=== PATIENT | male | born 1970 | race Caucasian/White ===

== ENCOUNTER 2020-02-21 23:26 | Inpatient (IN) ==
[2020-02-21 02:06] LABS: Basophils # 0.1 K/mcL (0.0-0.2); Basophils % 0.4 %; Eosinophils # 0.1 K/mcL (0.0-0.6); Eosinophils % 0.6 %; Hematocrit 43.7 % (37.5-50.1); Hemoglobin 14.2 g/dL (12.9-16.9); Immature Granulocytes % 0.3 % (0-4); Lymphocytes # 3.5 K/mcL (0.6-4.6); Lymphocytes % 24.3 %; Mean Corpuscular HGB Conc 32.5 g/dL (31.6-35.5); Mean Corpuscular Hemoglobin 30.7 pg (28.0-33.3); Mean Corpuscular Volume 94.6 fL (83.0-100.0); Mean Platelet Volume 10.6 fL (9.4-12.4); Monocytes # 0.9 K/mcL (0.0-1.3); Monocytes % 6.4 %; Neutrophils # 9.8 K/mcL (1.6-8.9); Platelet Count 227 K/mcL (140-400); Red Blood Count 4.62 M/mcL (4.19-5.50); Red Cell Distribution Width 14.7 % (11.5-14.5); White Blood Count 14.5 K/mcL (4.3-11.1)
[2020-02-21 02:10] LABS: Prothrombin Time 11.9 Seconds (9.4-12.1)
[2020-02-21 02:29] LABS: Chol/HDL Ratio 4.8 (0-4.9); Magnesium 1.9 mg/dL (1.6-2.6)
[2020-02-21 02:30] LABS: BUN/Creatinine Ratio 30 (6-26); Blood Urea Nitrogen 22 mg/dL (6-20); Calcium 8.7 mg/dL (8.6-10.3); Carbon Dioxide 25 mEq/L (23-29); Chloride 101 mEq/L (98-107); Glucose 115 mg/dL (70-105); Osmolality,Calculated 290 (280-300); Potassium 4.1 mEq/L (3.5-5.1); Sodium 138 mEq/L (136-145); eGFR For African Americans > 60 (> 60); eGFR For Non-African Americans > 60 (> 60)
[2020-02-21 02:39] LABS: Troponin I 0.07 ng/mL (< 0.04)
[2020-02-21 03:01] LABS: Hematocrit 43.3 % (37.5-50.1); Hemoglobin 13.7 g/dL (12.9-16.9); Mean Corpuscular HGB Conc 31.6 g/dL (31.6-35.5); Mean Corpuscular Hemoglobin 29.7 pg (28.0-33.3); Mean Corpuscular Volume 93.9 fL (83.0-100.0); Mean Platelet Volume 10.5 fL (9.4-12.4); Platelet Count 213 K/mcL (140-400); Red Blood Count 4.61 M/mcL (4.19-5.50); Red Cell Distribution Width 14.8 % (11.5-14.5); White Blood Count 12.6 K/mcL (4.3-11.1)
[2020-02-21 03:02] LABS: Heparin anti-factor XA UFH 0.04 IU/mL (0.30-0.70)
[2020-02-21 03:03] LABS: Prothrombin Time 11.4 Seconds (9.4-12.1)
[2020-02-21] MEDS: Azithromycin 500 MG in 0.9 % Sodium Chloride 250 ML IVPB SCH (03:10)
[2020-02-21] MEDS: Heparin 25,000 UNIT/250 ML D5W 25,000 UNIT/250 ML IV.SOLN IVC SCH ×2 (03:35→21:32)
[2020-02-21] MEDS: Ipratropium/Albuterol Neb 3 ML IH SCH ×6 (03:51→23:57)
[2020-02-21 03:55] LABS: Thyroid Stimulating Hormone 3.373 mcIU/mL (0.340-5.600)
[2020-02-21] MEDS: Aspirin 81 MG TAB.CHEW PO SCH (09:11)
[2020-02-21] MEDS: Acetaminophen 325 MG TABLET PO PRN (17:06)
[2020-02-21 18:05] LABS: VBG HCO3 30 mEq/L (21-27); VBG PCO2 47 mmHg (41-51); VBG PH 7.41 pH Units (7.32-7.42); VBG PO2 113 mmHg (25-50)
[2020-02-21] MEDS: *HR* Heparin 5,000 UNIT/ML VIAL IVP PRN (18:08)
[~2020-02-21 23:26] MED LIST: *HR* Heparin 5,000 UNIT/ML VIAL IVP ONE; *HR* Heparin 5,000 UNIT/ML VIAL IVP PRN; Furosemide 40 MG/4 ML VIAL IVP ONE; Ipratropium/Albuterol Neb 3 ML IH PRN; MethylPREDNISolone 40 MG/ML VIAL IVP SCH; Naloxone 0.4 MG/ML INJ IVP PRN; Ondansetron 4 MG/2 ML VIAL IVP PRN; Perflutren Lipid Microsphere 1.3 ML in 0.9 % Sodium Chloride 8.7 ML IVP ONE; cefTRIAXone 1,000 MG in Water for inj. (sterile) 10 ML IVP ONE; cefTRIAXone 1,000 MG in Water for inj. (sterile) 10 ML IVP SCH; cefTRIAXone 2,000 MG in Water for inj. (sterile) 20 ML IVP SCH; methylPREDNISolone 125 MG/2 ML VIAL IVP ONE
[2020-02-22] MEDS: *HR* Heparin 5,000 UNIT/ML VIAL IVP PRN ×2 (02:25→10:36)
[2020-02-22] MEDS: Ipratropium/Albuterol Neb 3 ML IH SCH ×5 (03:44→19:42)
[2020-02-22] MEDS: Azithromycin 500 MG in 0.9 % Sodium Chloride 250 ML IVPB SCH (04:12)
[2020-02-22 04:16] LABS: BUN/Creatinine Ratio 28 (6-26); Blood Urea Nitrogen 19 mg/dL (6-20); Calcium 8.9 mg/dL (8.6-10.3); Carbon Dioxide 28 mEq/L (23-29); Chloride 101 mEq/L (98-107); Glucose 95 mg/dL (70-105); Osmolality,Calculated 290 (280-300); Potassium 3.9 mEq/L (3.5-5.1); Sodium 139 mEq/L (136-145); eGFR For African Americans > 60 (> 60); eGFR For Non-African Americans > 60 (> 60)
[2020-02-22] MEDS: Acetaminophen 325 MG TABLET PO PRN (04:23)
[2020-02-22 05:38] LABS: Hematocrit 46.9 % (37.5-50.1); Hemoglobin 14.7 g/dL (12.9-16.9); Mean Corpuscular HGB Conc 31.3 g/dL (31.6-35.5); Mean Corpuscular Hemoglobin 30.2 pg (28.0-33.3); Mean Corpuscular Volume 96.5 fL (83.0-100.0); Mean Platelet Volume 11.5 fL (9.4-12.4); Platelet Count 187 K/mcL (140-400); Red Blood Count 4.86 M/mcL (4.19-5.50); Red Cell Distribution Width 14.8 % (11.5-14.5); White Blood Count 13.9 K/mcL (4.3-11.1)
[2020-02-22] MEDS ORDERED: Regadenoson 0.4 MG/5 ML SYRINGE IVP ONE (06:08)
[2020-02-22 06:43] LABS: Estimated Average Glucose 146 mg/dl
[2020-02-22] MEDS: predniSONE 20 MG TABLET PO SCH (10:36)
[2020-02-22] MEDS: Aspirin 81 MG TAB.CHEW PO SCH (10:36)
[2020-02-22] MEDS: Heparin 25,000 UNIT/250 ML D5W 25,000 UNIT/250 ML IV.SOLN IVC SCH ×2 (10:38→21:24)
[2020-02-22] MEDS: Furosemide 40 MG/4 ML VIAL IVP SCH ×2 (11:33→16:36)
[2020-02-22] MEDS ORDERED: cefTRIAXone 2,000 MG in Water for inj. (sterile) 20 ML IVP SCH (18:00)
[2020-02-23] MEDS: Ipratropium/Albuterol Neb 3 ML IH SCH ×7 (00:04→23:52)
[2020-02-23 02:32] LABS: Hemoglobin 14.8 g/dL (12.9-16.9); Mean Corpuscular HGB Conc 32.2 g/dL (31.6-35.5); Mean Corpuscular Volume 93.1 fL (83.0-100.0); Mean Platelet Volume 10.8 fL (9.4-12.4); Platelet Count 199 K/mcL (140-400); Red Blood Count 4.94 M/mcL (4.19-5.50); Red Cell Distribution Width 14.9 % (11.5-14.5); White Blood Count 12.7 K/mcL (4.3-11.1)
[2020-02-23 02:51] LABS: BUN/Creatinine Ratio 25 (6-26); Blood Urea Nitrogen 19 mg/dL (6-20); Calcium 9.1 mg/dL (8.6-10.3); Carbon Dioxide 28 mEq/L (23-29); Chloride 98 mEq/L (98-107); Glucose 95 mg/dL (70-105); Osmolality,Calculated 284 (280-300); Potassium 3.7 mEq/L (3.5-5.1); Sodium 136 mEq/L (136-145); eGFR For African Americans > 60 (> 60); eGFR For Non-African Americans > 60 (> 60)
[2020-02-23] MEDS: Azithromycin 500 MG in 0.9 % Sodium Chloride 250 ML IVPB SCH (03:22)
[2020-02-23] MEDS: Heparin 25,000 UNIT/250 ML D5W 25,000 UNIT/250 ML IV.SOLN IVC SCH (06:23)
[2020-02-23] MEDS: Furosemide 40 MG/4 ML VIAL IVP SCH (08:00)
[2020-02-23] MEDS: Aspirin 81 MG TAB.CHEW PO SCH (09:05)
[2020-02-23] MEDS: predniSONE 20 MG TABLET PO SCH (09:05)
[2020-02-24] MEDS: Ipratropium/Albuterol Neb 3 ML IH SCH ×5 (03:29→19:52)
[2020-02-24] MEDS: Aspirin 81 MG TAB.CHEW PO SCH (07:41)
[2020-02-24] MEDS: Azithromycin 250 MG TABLET PO SCH (07:41)
[2020-02-24] MEDS: predniSONE 20 MG TABLET PO SCH (07:41)
[2020-02-24 08:58] LABS: BUN/Creatinine Ratio 25 (6-26); Blood Urea Nitrogen 19 mg/dL (6-20); Calcium 8.9 mg/dL (8.6-10.3); Carbon Dioxide 27 mEq/L (23-29); Chloride 103 mEq/L (98-107); Glucose 106 mg/dL (70-105); Osmolality,Calculated 285 (280-300); Potassium 4.2 mEq/L (3.5-5.1); Sodium 136 mEq/L (136-145); eGFR For African Americans > 60 (> 60); eGFR For Non-African Americans > 60 (> 60)
[2020-02-24] MEDS ORDERED: ISOVUE-370 200 ML INFUS..BTL ONE (13:47)
[2020-02-24] MEDS ORDERED: 0.9 % Sodium Chloride 2,000 ML ONE (13:47)
[2020-02-24] MEDS ORDERED: Heparin 1,000 UNITS/500 mL 500 ML ONE (13:47)
[2020-02-24] MEDS ORDERED: *HR* Heparin 10,000 UNIT/10 ML VIAL ONE (13:47)
[2020-02-24] MEDS ORDERED: Nitroglycerin 1,000 MCG/10 ML VIAL IV ONE (13:47)
[2020-02-24] MEDS ORDERED: *HR* Midazolam HCl 2 MG/2 ML VIAL ONE (13:56)
[2020-02-24] MEDS ORDERED: Furosemide 40 MG/4 ML VIAL IVP ONE (14:43)
[2020-02-24] MEDS: lisinopriL 5 MG TABLET PO SCH (16:09)
[2020-02-24] MEDS: Metoprolol XL (24 HR) Succ 25 MG TAB.ER.24H PO SCH (16:09)
[2020-02-24] MEDS ORDERED: carvediloL 6.25 MG TABLET PO SCH (17:00)
[2020-02-24] MEDS: *HR* Heparin 5,000 UNIT/ML VIAL SQ SCH (22:13)
[2020-02-25] MEDS: Ipratropium/Albuterol Neb 3 ML IH SCH ×3 (00:05→07:29)
[2020-02-25 01:29] LABS: Hematocrit 47.2 % (37.5-50.1); Hemoglobin 14.8 g/dL (12.9-16.9); Mean Corpuscular HGB Conc 31.4 g/dL (31.6-35.5); Mean Corpuscular Hemoglobin 29.5 pg (28.0-33.3); Mean Corpuscular Volume 94.2 fL (83.0-100.0); Mean Platelet Volume 10.9 fL (9.4-12.4); Platelet Count 214 K/mcL (140-400); Red Blood Count 5.01 M/mcL (4.19-5.50); Red Cell Distribution Width 14.8 % (11.5-14.5); White Blood Count 12.5 K/mcL (4.3-11.1)
[2020-02-25 01:53] LABS: BUN/Creatinine Ratio 24 (6-26); Blood Urea Nitrogen 21 mg/dL (6-20); Calcium 8.9 mg/dL (8.6-10.3); Carbon Dioxide 27 mEq/L (23-29); Chloride 98 mEq/L (98-107); Glucose 161 mg/dL (70-105); Osmolality,Calculated 286 (280-300); Potassium 3.5 mEq/L (3.5-5.1); Sodium 135 mEq/L (136-145); eGFR For African Americans > 60 (> 60); eGFR For Non-African Americans > 60 (> 60)
[2020-02-25 06:24] VITALS: BP 107/67
[2020-02-25] MEDS: *HR* Heparin 5,000 UNIT/ML VIAL SQ SCH (08:23)
[2020-02-25] MEDS: Aspirin 81 MG TAB.CHEW PO SCH (08:54)
[2020-02-25] MEDS: predniSONE 20 MG TABLET PO SCH (08:54)
[2020-02-25] MEDS: Azithromycin 250 MG TABLET PO SCH (08:54)
[2020-02-25] MEDS: Metoprolol XL (24 HR) Succ 25 MG TAB.ER.24H PO SCH (08:54)
[2020-02-25] MEDS: lisinopriL 5 MG TABLET PO SCH (08:54)
[2020-02-25] MEDS ORDERED: Spironolactone 25 MG TABLET PO SCH (09:00)
[2020-02-25] MEDS ORDERED: Metoprolol XL (24 HR) Succ 25 MG TAB.ER.24H PO ONE (10:37)
[2020-02-26] MEDS ORDERED: Metoprolol XL (24 HR) Succ 50 MG TAB.ER.24H PO SCH (09:00)
== END 2020-02-25 11:19 | disposition home or self-care (01) | DRG 280 ==
LOC: 2ANU → SUATTDRO 02-22 22:29
PROVIDERS: ADMIT Internal Medicine; ATTEND Internal Medicine

== ENCOUNTER 2020-05-09 10:38 | Observation (INO) ==
[2020-05-09] MEDS ORDERED: Aspirin 81 MG TAB.CHEW PO ONE (10:42)
[2020-05-09] MEDS: Nitroglycerin 0.4 MG TAB.SUBL SL PRN ×3 (11:40→19:41)
[2020-05-09 12:19] LABS: Prothrombin Time 11.9 Seconds (9.4-12.1)
[2020-05-09 12:21] LABS: Activated Partial Thrombo Time 32.8 Seconds (26.0-36.0)
[2020-05-09 12:31] LABS: Basophils # 0.1 K/mcL (0.0-0.2); Basophils % 0.5 %; Eosinophils # 0.1 K/mcL (0.0-0.6); Eosinophils % 1.2 %; Hematocrit 44.4 % (37.5-50.1); Hemoglobin 14.6 g/dL (12.9-16.9); Immature Granulocytes % 0.4 % (0-4); Lymphocytes # 2.2 K/mcL (0.6-4.6); Lymphocytes % 20.5 %; Mean Corpuscular HGB Conc 32.9 g/dL (31.6-35.5); Mean Corpuscular Hemoglobin 31.2 pg (28.0-33.3); Mean Corpuscular Volume 94.9 fL (83.0-100.0); Mean Platelet Volume 10.9 fL (9.4-12.4); Monocytes # 0.7 K/mcL (0.0-1.3); Monocytes % 6.5 %; Neutrophils # 7.7 K/mcL (1.6-8.9); Platelet Count 202 K/mcL (140-400); Red Blood Count 4.68 M/mcL (4.19-5.50); Red Cell Distribution Width 14.2 % (11.5-14.5); Segmented Neutrophils % 70.9 %; White Blood Count 10.8 K/mcL (4.3-11.1)
[2020-05-09 12:34] LABS: Troponin I 0.23 ng/mL (< 0.04)
[2020-05-09 12:44] LABS: BUN/Creatinine Ratio 23 (6-26); Blood Urea Nitrogen 17 mg/dL (6-20); Carbon Dioxide 24 mEq/L (23-29); Chloride 101 mEq/L (98-107); Glucose 115 mg/dL (70-105); Osmolality,Calculated 282 (280-300); Potassium 4.5 mEq/L (3.5-5.1); Sodium 135 mEq/L (136-145); eGFR For African Americans > 60 (> 60); eGFR For Non-African Americans > 60 (> 60)
[2020-05-09] MEDS ORDERED: Naloxone 0.4 MG/ML INJ IVP PRN (13:19)
[2020-05-09] MEDS ORDERED: *HR* Heparin 5,000 UNIT/ML VIAL IVP ONE (13:22)
[2020-05-09] MEDS ORDERED: *HR* Heparin 5,000 UNIT/ML VIAL IVP PRN ×2 (13:22)
[2020-05-09] MEDS ORDERED: D5% in Water 1,000 ML IVC PRN (13:24)
[2020-05-09] MEDS ORDERED: Dextrose Gel 15 GM/37.5 ML TUBE PO PRN ×2 (13:24)
[2020-05-09] MEDS ORDERED: *HR* Dextrose 50 % in Water (Vial) 50 ML VIAL IVP PRN (13:24)
[2020-05-09] MEDS ORDERED: Heparin 25,000 UNIT/250 ML D5W 25,000 UNIT/250 ML IV.SOLN IVC SCH (13:30)
[2020-05-09] MEDS ORDERED: Ipratropium/Albuterol Neb 3 ML IH PRN (14:19)
[2020-05-09] MEDS: Insulin LISPRO 300 UNITS/3 ML VIAL SQ SCH ×3 (16:03→23:30)
[2020-05-09] MEDS: Nicotine 21 MG PATCH.TD24 TD SCH (16:30)
[2020-05-10 01:26] LABS: BUN/Creatinine Ratio 22 (6-26); Blood Urea Nitrogen 18 mg/dL (6-20); Calcium 9.1 mg/dL (8.6-10.3); Carbon Dioxide 23 mEq/L (23-29); Chloride 99 mEq/L (98-107); Glucose 99 mg/dL (70-105); Magnesium 1.9 mg/dL (1.6-2.6); Osmolality,Calculated 280 (280-300); Phosphorous 4.8 mg/dL (2.7-4.5); Potassium 4.1 mEq/L (3.5-5.1); Sodium 134 mEq/L (136-145); eGFR For African Americans > 60 (> 60); eGFR For Non-African Americans > 60 (> 60)
[2020-05-10] MEDS ORDERED: Morphine Sulfate 2 MG/ML SYRINGE IVP ONE (02:26)
[2020-05-10] MEDS: Insulin LISPRO 300 UNITS/3 ML VIAL SQ SCH ×2 (05:55→14:49)
[2020-05-10] MEDS ORDERED: Aspirin Enteric Coated 81 MG Tablet PO PRN (08:00)
[2020-05-10] MEDS ORDERED: Metoprolol XL (24 HR) Succ 25 MG TAB.ER.24H PO SCH (09:00)
[2020-05-10] MEDS: Furosemide 20 MG TABLET PO SCH (09:26)
[2020-05-10] MEDS: Spironolactone 25 MG TABLET PO SCH (09:26)
[2020-05-10] MEDS: Metoprolol XL (24 HR) Succ 50 MG TAB.ER.24H PO SCH (09:26)
[2020-05-10] MEDS: lisinopriL 20 MG TABLET PO SCH (09:27)
[2020-05-10] MEDS: Nicotine 21 MG PATCH.TD24 TD SCH (09:28)
[2020-05-10] MEDS: Budesonide/Formoterol 80/4.5 1 PUFF INH IH SCH ×2 (10:09→21:43)
[2020-05-10] MEDS ORDERED: Perflutren Lipid Microsphere 1.3 ML in 0.9 % Sodium Chloride 8.7 ML IVP PRN (11:23)
[2020-05-10] MEDS ORDERED: *HR* Heparin 10,000 UNIT/10 ML VIAL ONE (12:45)
[2020-05-10] MEDS ORDERED: Heparin 1,000 UNITS/500 mL 500 ML ONE (12:45)
[2020-05-10] MEDS ORDERED: Nitroglycerin 1,000 MCG/10 ML VIAL IV ONE (12:46)
[2020-05-10] MEDS ORDERED: ISOVUE-370 200 ML INFUS..BTL ONE ×2 (12:46→14:00)
[2020-05-10] MEDS ORDERED: 0.9 % Sodium Chloride 2,000 ML ONE (12:50)
[2020-05-10] MEDS ORDERED: *HR* Midazolam HCl 2 MG/2 ML VIAL ONE (13:07)
[2020-05-10] MEDS ORDERED: *HR* FentaNYL (PF) 100 MCG/2 ML VIAL ONE (13:07)
[2020-05-10] MEDS ORDERED: Tirofiban 12.5 MG/250ML 12.5 MG/250 ML BAG IVC SCH (14:30)
[2020-05-10] MEDS ORDERED: Pantoprazole 40 MG VIAL IVP ONE (15:17)
[2020-05-10] MEDS ORDERED: *HR* Atropine Sulfate 1 MG/10 ML SYRINGE ONE (16:13)
[2020-05-10] MEDS ORDERED: Insulin LISPRO 300 UNITS/3 ML VIAL SQ SCH (21:00)
[2020-05-10] MEDS: Acetaminophen 325 MG TABLET PO PRN (21:50)
[2020-05-11] MEDS: Acetaminophen 325 MG TABLET PO PRN (03:58)
[2020-05-11] MEDS: Budesonide/Formoterol 80/4.5 1 PUFF INH IH SCH (07:33)
[2020-05-11] MEDS: Insulin LISPRO 300 UNITS/3 ML VIAL SQ SCH ×2 (07:58→12:55)
[2020-05-11] MEDS: lisinopriL 20 MG TABLET PO SCH (07:58)
[2020-05-11] MEDS: Nicotine 21 MG PATCH.TD24 TD SCH (07:58)
[2020-05-11] MEDS: Furosemide 20 MG TABLET PO SCH (07:58)
[2020-05-11] MEDS: Spironolactone 25 MG TABLET PO SCH (07:58)
[2020-05-11] MEDS: Metoprolol XL (24 HR) Succ 50 MG TAB.ER.24H PO SCH (07:59)
[2020-05-11 11:53] VITALS: BP 103/65
== END 2020-05-11 13:39 | disposition home or self-care (01) ==
LOC: 3BNU 10:38 → EMEROOARM 10:38 → SUATTDRO 14:04 → 3BNU 14:41 → 2NNU 05-10 14:25
PROVIDERS: ADMIT Internal Medicine; ATTEND Pharmacist